=== PATIENT | male | born 1940 | race Caucasian/White ===

== ENCOUNTER 2017-07-02 02:55 | Emergency (ER) | payer MEDICARE ==
--- NOTE | 2017-07-02 03:53 | ED Physician Chart ---
ED Chief Complaint/HPI - Patient Information Date Seen:: 07/02/17 Time Seen:: 03:50 Chief Complaint:: Right shoulder pain History of Present Illness:: 76 yo male had right shoulder pain due to DJD for 2 years worsened for a few months. This morning, the patient could not tolerate the pain and called 911. Allergies:: Allergies Allergy/AdvReac Type Severity Reaction Status Date / Time No Known Allergies Allergy Verified 12/26/15 19:52 <Kristina Cavazos - Last Filed: 07/02/17 03:50> - Patient Information Allergies:: Allergies Allergy/AdvReac Type Severity Reaction Status Date / Time No Known Allergies Allergy Verified 12/26/15 19:52 Vitals:: Vital Signs - 8 hr 07/02/17 03:30 Temp 97.8 F HR 65 RR 19 BP 178/91 O2 Sat % 96 <Frank Figueroa - Last Filed: 07/02/17 07:31> Family Medical History - Family Member Father History Unknown: Yes Ethnicity: Non- Living Status: Hx Family Cancer: Yes Hx Family Coronary Artery Disease: Yes Hx Family Congestive Heart Failure: Yes Hx Family Hypertension: Yes Hx Family Stroke: No Hx Family Diabetes: No Hx Family Seizures: No Hx Family Dementia: No Hx Family AIDS: No Hx Family HIV: No Hx Family COPD: Yes Hx Family Hepatitis: No Hx Family Psychiatric Problems: No Hx Family Tuberculosis: No <Kristina Cavazos - Last Filed: 07/02/17 03:50> ED Labs/Radiology/EKG Results - Lab Results Results: Laboratory Tests 07/02/17 07/02/17 04:15 04:15 WBC 5.5 D RBC 4.39 Hgb 11.4 L Hct 35.1 L MCV 79.8 L MCH 25.9 L MCHC Differential 32.5 RDW 14.9 Plt Count 455 H D MPV 7.0 Neutrophils % 63.9 Lymphocytes % 21.9 Monocytes % 9.8 Eosinophils % 3.6 Basophils % 0.8 Sodium 138 Potassium 4.5 Chloride 108 H Carbon Dioxide 24.6 Anion Gap 9.9 BUN 18 Creatinine 0.8 Est GFR ( Amer) TNP Est GFR (Non-Af Amer) TNP BUN/Creatinine Ratio 22.5 Glucose 102 Calcium 9.1 Total Bilirubin 0.3 AST 10 L ALT 8 Alkaline Phosphatase 78 Total Protein 6.5 Albumin 3.9 L Globulin 2.6 Albumin/Globulin Ratio 1.5 <Frank Figueroa - Last Filed: 07/02/17 07:31> ED Septic Shock - . Is Septic Shock (SBP<90, OR Lactate>4 mmol\L) present?: No - <6hrs of presentation: Vital Signs: Vital Signs - 8 hr 07/02/17 03:30 Temp 97.8 F HR 65 RR 19 BP 178/91 O2 Sat % 96 <Frank Figueroa - Last Filed: 07/02/17 07:31> ED Reassessment (Disposition) - Reassessment Reassessment:: Right shoulder x-ray reviewed and no fracture noted. Reassessment Condition:: Improved - Diagnosis Diagnosis:: Right shoulder pain secondary to arthritis - Aftercare/Follow up Instructions Aftercare/Follow-Up Instructions:: Refer to Discharge Instructions Medication Prescribed:: [place] 10/29/2024 #10 to take 1 4 times a day as necessary for pain - Patient Disposition Discharge/Transfer:: Home Condition at Disposition:: Stable, Improved <Frank Figueroa - Last Filed: 07/02/17 07:31>
[2017-07-02 04:48] LABS: % BASOPHILS 0.8 % (0.0-2.0); % EOSINOPHILS 3.6 % (0.0-5.0); % LYMPHOCYTES 21.9 % (20.0-50.0); % MONOCYTES 9.8 % (2.0-10.0); % NEUTROPHILS 63.9 % (40.0-80.0); ALB/GLOB RATIO 1.5 (1.0-1.8); ALBUMIN 3.9 gm/dL (4.2-5.5); ALKALINE PHOSPHATASE 78 U/L (34-104); ANION GAP 9.9 (7.0-16.0); BILIRUBIN,TOTAL 0.3 mg/dL (0.3-1.0); BUN - UREA NITROGEN 18 mg/dL (7-25); CALCIUM SERUM 9.1 mg/dL (8.6-10.3); CARBON DIOXIDE 24.6 mEq/L (21.0-31.0); CHLORIDE 108 mEq/L (98-107); CREATININE - SERUM 0.8 mg/dL (0.7-1.3); EOSINOPHILE ABSOLUTE 0.2 Th/cmm (0.1-0.4); GLUCOSE 102 mg/dL (70-105); HEMATOCRIT 35.1 % (41.0-60); HEMOGLOBIN 11.4 gm/dL (12-16); LYMPHOCYTE ABSOLUTE 1.2 Th/cmm (1.5-3.0); MEAN CELL VOLUME 79.8 fl (80-99); MEAN CORPUSCULAR HEMOGLOBIN 25.9 pg (27.0-31.0); MEAN CORPUSCULAR HGB CONC 32.5 pg (28.0-36.0); MONOCYTE ABSOLUTE 0.5 Th/cmm (0.3-1.0); NEUTROPHILE ABSOLUTE 3.6 Th/cmm (1.8-8.0); POTASSIUM SERUM 4.5 mEq/L (3.5-5.1); RED BLOOD COUNT 4.39 Mil/cmm (3.80-5.80); RED CELL DISTRIBUTION WIDTH 14.9 % (11.5-20.0); SGOT 10 U/L (13-39); SGPT/ALT 8 U/L (7-52); SODIUM SERUM 138 mEq/L (136-145); TOTAL PROTEIN,SERUM 6.5 gm/dL (6.0-8.3)
[2017-07-02 04:49] LABS: PLATELET COUNT 455 Th/cmm (150-400); WHITE BLOOD COUNT 5.5 Th/cmm (4.8-10.8)
--- NOTE | 2017-07-02 08:41 | Diagnostic Imaging Report ---
Right shoulder 2 views Indication: pain Comparison: none Findings: Advanced glenohumeral joint degenerative changes are seen with advanced joint space loss. Moderate AC joint degenerative changes are noted. No evidence of an acute fracture or obvious dislocation. Postsurgical changes of the lower cervical spine are noted. There may be additional postsurgical changes of the mandibular region. Impression: No evidence of an acute fracture. Advanced degenerative changes most pronounced within the glenohumeral joint. Postsurgical changes. In the setting of trauma, if clinical symptoms persist and there is continued concern for an occult fracture, follow up exams in 5-7 days is suggested.
== END 2017-07-02 09:32 | disposition home or self-care (01) ==
LOC: ER 02:55
DX: M19.211 Secondary osteoarthritis, right shoulder (principal)
CPT/HCPCS: 99285; 96372; 73030; 36415; 85025; 80053; J1885

== ENCOUNTER 2018-05-31 16:37 | Emergency (ER) | payer MEDICARE ==
[2018-05-31 18:09] LABS: % BASOPHILS 1.9 % (0.0-2.0); % EOSINOPHILS 0.5 % (0.0-5.0); % LYMPHOCYTES 11.7 % (20.0-50.0); % MONOCYTES 7.9 % (2.0-10.0); BASOPHILE ABSOLUTE 0.1 Th/cumm (0-0.2); HEMATOCRIT 40.2 % (41.0-60); HEMOGLOBIN 13.7 gm/dL (12-16); LYMPHOCYTE ABSOLUTE 0.8 Th/cmm (1.5-3.0); MEAN CELL VOLUME 84.6 fl (80-99); MEAN CORPUSCULAR HEMOGLOBIN 28.8 pg (27.0-31.0); MEAN CORPUSCULAR HGB CONC 34.1 pg (28.0-36.0); MONOCYTE ABSOLUTE 0.6 Th/cmm (0.3-1.0); NEUTROPHILE ABSOLUTE 5.5 Th/cmm (1.8-8.0); PLATELET COUNT 365 Th/cmm (150-400); RED BLOOD COUNT 4.76 Mil/cmm (3.80-5.80); RED CELL DISTRIBUTION WIDTH 13.1 % (11.5-20.0)
--- NOTE | 2018-05-31 18:11 | ED Physician Chart ---
ED Chief Complaint/HPI - Patient Information Date Seen:: 05/31/18 Time Seen:: 17:07 Chief Complaint:: left head trauma History of Present Illness:: left head trauma s/p fall. No LOC. Bleeding left ear. Allergies:: Allergies Allergy/AdvReac Type Severity Reaction Status Date / Time No Known Allergies Allergy Verified 05/31/18 17:18 Vitals:: Vital Signs - 8 hr 05/31/18 17:07 Temp 95.6 F HR 86 RR 18 BP 166/93 O2 Sat % 97 Historian:: Patient Review:: Nurse's Note Reviewed ED Review of Systems - Review of Systems General/Constitutional: No fever, No chills, No weight loss, No weakness, No diaphoresis, No edema, No loss of appetite Skin: Other (bleeding left ear with hematoma. Not able to see exactly where it is bleeding from due to pooling.) Head: Headache Eyes: No loss of vision, No pain, No diplopia ENT: Earache, No nasal drainage, No sore throat, No tinnitus, Other (bleeding left ear) Neck: No neck pain, No swelling, No thyromegaly, No stiffness, No mass noted Cardio Vascular: No chest pain, No palpitations, No PND, No orthopnea, No edema Pulmonary: No SOB, No cough, No sputum, No wheezing GI: No nausea, No vomiting, No diarrhea, No pain, No melena, No hematochezia, No constipation, No hematemesis G/U: No dysuria, No frequency, No hematuria Musculoskeletal: No bone or joint pain, No back pain, No muscle pain Endocrine: No polyuria, No polydipsia Psychiatric: No prior psych history, No depression, No anxiety, No suicidal ideation Hematopoietic: No bruising, No lymphadenopathy Allergic/Immuno: No urticaria, No angioedema Neurological: No syncope, No focal symptoms, No weakness, No paresthesia, No headache, No seizure, No dizziness, No confusion, No vertigo ED Past Medical History - Past Medical History Obtainable: Yes Surgical History: other (bilateral shoulder surgery; left hand surgery; neck fusion) Family Medical History - Family Member Father History Unknown: Yes Ethnicity: Non- Living Status: Hx Family Cancer: Yes Hx Family Coronary Artery Disease: Yes Hx Family Congestive Heart Failure: Yes Hx Family Hypertension: Yes Hx Family Stroke: No Hx Family Diabetes: No Hx Family Seizures: No Hx Family Dementia: No Hx Family AIDS: No Hx Family HIV: No Hx Family COPD: Yes Hx Family Hepatitis: No Hx Family Psychiatric Problems: No Hx Family Tuberculosis: No ED Physical Exam - Physical Examination General/Constitutional: Awake, Well-developed, well-nourished, Alert, No distress, GCS 15, Non-toxic appearing, Ambulatory Other Head comments:: left bleeding ear. Eyes: Lids, conjuctiva normal, PERRL, EOMI Other ENMT comments:: left bleeding ear with hematoma. not able to see where actual bleeding point is present. Other Neck comments:: c/o neck pain. placed in c-spine precautions with c-collar. Respiratory: Nl effort/Exclusion, Clear to Auscultation, No Wheeze/Rhonchi/Rales Cardio Vascular: RRR, No murmur, gallop, rubs, NL S1 S2 GI: No tenderness/rebounding/guarding, No organomegaly, No hernia, Normal BS's, Nondistended, No mass/bruits, No McBurney tenderness Other Extremities comments:: BUE scars on shoulders. Amputation of left index finger. Neuro/Psych: Normal sensory exam, Judgement/insight normal, Mood normal, Normal gait, No focal deficits Other Neuro/Psych comments:: not able to elevate or abduct left shoulder. Misc: Normal back, No paraspinal tenderness ED Labs/Radiology/EKG Results - Lab Results Results: Laboratory Tests 05/31/18 05/31/18 17:37 17:55 WBC 7.0 RBC 4.76 Hgb 13.7 Hct 40.2 L MCV 84.6 MCH 28.8 MCHC Differential 34.1 RDW 13.1 Plt Count 365 MPV 7.0 Neutrophils % 78.0 Lymphocytes % 11.7 L Monocytes % 7.9 Eosinophils % 0.5 Basophils % 1.9 POC Glucose 112 H ED Assessment - Assessment General Assessment: EKG from 17:41:19 p.m. reveals normal sinus rhythm with a flipped t wave in V1 and LVH. CT scan of brain: atrophy and sinusitis CT scan of c-spine reveals severe DJD and fusion of C3 to C7. repeat CT read as negative. [facility] Medicare: T.C. at 7:31 p.m. Called and spoke with Dr. Martin, an ENT surgeon application integration architect for the [facility]. I personally spoke to him through his exchange and he said that he is not sure that he can do surgery on the left ear. sign out given to Dr. Martin at 8:20 p.m. ED Septic Shock - . Is Septic Shock (SBP<90, OR Lactate>4 mmol\L) present?: No - <6hrs of presentation: Vital Signs: Vital Signs - 8 hr 05/31/18 17:07 Temp 95.6 F HR 86 RR 18 BP 166/93 O2 Sat % 97 ED Reassessment (Disposition) - Reassessment Reassessment Condition:: Unchanged - Diagnosis Diagnosis:: Bleeding left ear Head trauma Neck pain with severe DJD - Patient Disposition Discharge/Transfer:: Acute Care (other hosp) Condition at Disposition:: Stable, Unchanged
[2018-05-31] MEDS ORDERED: ceFAZolin 1 GM in Sodium Chloride 0.9% 50 ML IV ONE (18:44)
[2018-05-31 19:19] LABS: ALB/GLOB RATIO 1.2 (1.0-1.8); ALBUMIN 3.8 gm/dL (4.2-5.5); ALKALINE PHOSPHATASE 79 U/L (34-104); ANION GAP 14.6 (7.0-16.0); BILIRUBIN,TOTAL 0.4 mg/dL (0.3-1.0); BUN - UREA NITROGEN 19 mg/dL (7-25); CALCIUM SERUM 9.4 mg/dL (8.6-10.3); CARBON DIOXIDE 21.3 mEq/L (21.0-31.0); CHLORIDE 106 mEq/L (98-107); GLUCOSE 109 mg/dL (70-105); MAGNESIUM 1.8 mg/dL (1.9-2.7); PHOSPHOROUS 2.9 mg/dL (2.5-5.0); POTASSIUM SERUM 3.9 mEq/L (3.5-5.1); SGOT 21 U/L (13-39); SGPT/ALT 16 U/L (7-52); SODIUM SERUM 138 mEq/L (136-145); TOTAL PROTEIN,SERUM 7.1 gm/dL (6.0-8.3)
[2018-05-31 19:21] LABS: URINE SOURCE CLEAN C
[2018-05-31 19:27] LABS: URINE BILIRUBIN NEGATIVE (NEGATIVE); URINE BLOOD NEGATIVE (NEGATIVE); URINE GLUCOSE (UA) NEGATIVE (NEGATIVE); URINE KETONE NEGATIVE (NEGATIVE); URINE LEUKOCYTE ESTERASE NEGATIVE (NEGATIVE); URINE NITRATE NEGATIVE (NEGATIVE); URINE PH 6.5 (4.6 - 8.0); URINE PROTEIN NEGATIVE (NEGATIVE); URINE UROBILINOGEN 0.2 E.U./dL (0.2 - 1.0)
[2018-05-31] MEDS ORDERED: Morphine Sulfate 2 mg/mL 1mL Syr IV STA (19:34)
[2018-05-31 19:39] LABS: AMPHETAMINE URINE POSITIVE (NEGATIVE); BARBITURATES URINE NEGATIVE (NEGATIVE); COCAINE METABOLITE QUAL URINE NEGATIVE (NEGATIVE); PHENCYCLIDINE (PCP) URINE NEGATIVE (NEGATIVE)
[2018-05-31 19:40] LABS: BENZODIAZEPINES QUAL URINE POSITIVE (NEGATIVE); CANNABINOID THC NEGATIVE (NEGATIVE); METHADONE URINE NEGATIVE (NEGATIVE); METHAMPHETAMINES QUAL URINE POSITIVE (NEGATIVE); OPIATES (MORPHINE) QUAL. URINE NEGATIVE (NEGATIVE); TRICYCLICS (TCA) QUAL. URINE NEGATIVE (NEGATIVE); URINE CLARITY CLEAR (CLEAR); URINE COLOR YELLOW; URINE MICROSCOPIC INDICATED? YES
[2018-05-31 19:42] LABS: URINE EPITHELIAL CELLS FEW /lpf (FEW); URINE RBC NONE SEEN /hpf (0-5); URINE WBC 0-2 /hpf (0-5)
[2018-05-31 19:43] LABS: URINE BACTERIA FEW /hpf (NONE SEEN)
[2018-05-31] MEDS ORDERED: Morphine Sulfate 2 mg/mL 1mL Syr ONE (19:52)
[2018-05-31] MEDS ORDERED: Lactated Ringer 1,000 ML IV ONE (20:05)
--- NOTE | 2018-06-01 08:48 | Diagnostic Imaging Report ---
Head CT without intravenous contrast Indication: Trauma Comparison: Head CT on 12/26/2015 Technique: Axial images were obtained from the vertex to the skull base without IV contrast. Coronal reconstructions were made. Total DLP: 1000, CTDI46 FINDINGS: Images of the brain obtained without contrast demonstrate no evidence of an acute hemorrhage. Mild atrophy is noted. The ventricles and basal cisterns are patent. No mass effect or midline shift. No evidence of a skull fracture. There is diffuse sinusitis with calcifications noted. Postsurgical changes of the maxillary regions are noted. IMPRESSION: No acute intracranial abnormality. Mild atrophy. Sinusitis with calcifications likely due to chronic sinusitis and chronic secretions. Postsurgical changes of the maxillary regions are noted.
--- NOTE | 2018-06-01 08:49 | Diagnostic Imaging Report ---
Head CT without intravenous contrast Indication: Trauma Comparison: Head CT earlier the same day Technique: Axial images were obtained from the vertex to the skull base without IV contrast. Coronal reconstructions were made. Total DLP: 966, CTDI42 FINDINGS: Images of the brain obtained without contrast demonstrate no acute hemorrhage. No mass lesions identified. The ventricles and basal cisterns are patent. The fallon-white matter differentiation is preserved. There is no mass effect or midline shift. Mild atrophy is noted. Sinusitis is noted. Postsurgical changes of the maxillary regions are noted. IMPRESSION: No acute intracranial abnormality. Mild atrophy. Sinusitis.
--- NOTE | 2018-06-01 09:23 | Diagnostic Imaging Report ---
CT cervical spine without IV contrast HISTORY: Trauma COMPARISON: Cervical spine CT 12/30/2014 Technique: Axial images were obtained from the skull base to the upper thoracic spine without IV contrast. Multiplanar reconstructions were made. Total DLP: 360, CTDI15.9 Findings: Images of the cervical spine obtained without contrast demonstrate evidence of previous anterior plate and screw fixation of C4-C7 with disc spacers at these levels. Extensive multilevel facet and discogenic degenerative changes are noted. Multilevel neural foraminal encroachment is also noted. No evidence of an acute fracture or subluxation. Degenerative changes of the atlantodental articulation is noted. There is mild scoliosis. No evidence of hardware loosening. Scarring of the lung apices is noted. IMPRESSION: No evidence of an acute fracture or subluxation Redemonstration of anterior fusion of C4-C7. No evidence of hardware loosening. Extensive multilevel degenerative changes. Mild scoliosis.
== END 2018-05-31 23:00 | disposition short-term general hospital (02) ==
LOC: ER 16:37
DX: S09.90XA Unspecified injury of head, initial encounter (principal); S68.111A Complete traumatic metacarpophalangeal amputation of left index finger, initial encounter; H92.22 Otorrhagia, left ear; M19.90 Unspecified osteoarthritis, unspecified site; M54.2 Cervicalgia; W18.30XA Fall on same level, unspecified, initial encounter; Y93.89 Activity, other specified; Y92.89 Other specified places as the place of occurrence of the external cause; Y99.8 Other external cause status
CPT/HCPCS: 99285; 96365; 96375; 93005; 70450 ×2; 72125; 84484; 36415; 36416; 82948; 80307; 85025; 81001; 83735; 84100; 80053; J2270; J1885; J0690

== ENCOUNTER 2018-06-18 10:52 | Emergency (ER) | payer MEDICARE ==
--- NOTE | 2018-06-18 20:20 | ED Physician Chart ---
ED Chief Complaint/HPI - Patient Information Date Seen:: 06/18/18 Time Seen:: 11:00 Chief Complaint:: Wound Check History of Present Illness:: pt is S/P left earlobe sutured laceration 2 weeks ago; pt denies any new trauma , LOC, ALOC, AMS, H/As, neck pain, C/P, SOB, Abd. Pain, A/N/V/D/C, fever, chills , or urinary s/s; pt's last tetanus shot: < 5 years; UTD Allergies:: Allergies Allergy/AdvReac Type Severity Reaction Status Date / Time No Known Allergies Allergy Verified 05/31/18 17:18 Historian:: Patient Review:: Nurse's Note Reviewed, Old Chart Reviewed ED Review of Systems - Review of Systems General/Constitutional: No fever, No chills, No weight loss, No weakness, No diaphoresis, No edema, No loss of appetite Skin: No skin lesions, No rash, No bruising Head: No headache, No light-headedness Eyes: No loss of vision, No pain, No diplopia ENT: No earache, No nasal drainage, No sore throat, No tinnitus Neck: No neck pain, No swelling, No thyromegaly, No stiffness, No mass noted Cardio Vascular: No chest pain, No palpitations, No PND, No orthopnea, No edema Pulmonary: No SOB, No cough, No sputum, No wheezing GI: No nausea, No vomiting, No diarrhea, No pain, No melena, No hematochezia, No constipation, No hematemesis G/U: No dysuria, No frequency, No hematuria, No nacturia Musculoskeletal: No bone or joint pain, No back pain, No muscle pain Endocrine: No polyuria, No polydipsia Psychiatric: No prior psych history, No depression, No anxiety, No suicidal ideation, No homicidal ideation, No auditory hallucination, No visual hallucination Hematopoietic: No bruising, No lymphadenopathy Allergic/Immuno: No urticaria, No angioedema Neurological: No syncope, No focal symptoms, No weakness, No paresthesia, No headache, No seizure, No dizziness, No confusion, No vertigo ED Past Medical History - Past Medical History Obtainable: Yes Past Medical History: HTN, Other (BPH) Family History: HTN Social History: Non Smoker, No Alcohol, No Drug Use, Surgical History: None Psychiatricy History: None Medication: Reviewed Family Medical History - Family Member Father History Unknown: Yes Ethnicity: Non- Living Status: Hx Family Cancer: Yes Hx Family Coronary Artery Disease: Yes Hx Family Congestive Heart Failure: Yes Hx Family Hypertension: Yes Hx Family Stroke: No Hx Family Diabetes: No Hx Family Seizures: No Hx Family Dementia: No Hx Family AIDS: No Hx Family HIV: No Hx Family COPD: Yes Hx Family Hepatitis: No Hx Family Psychiatric Problems: No Hx Family Tuberculosis: No ED Physical Exam - Physical Examination General/Constitutional: Awake, Well-developed, well-nourished, Alert, No distress, GCS 15, Non-toxic appearing, Ambulatory Head: Atraumatic Eyes: Lids, conjuctiva normal, PERRL, EOMI Skin: Nl inspection, No rash, No skin lesions, No ecchymosis, Well hydrated, No lymphadenopathy Other Skin comments:: Left Earlobe Sutured wound is healing well; no s/s of infection; good NV functions ENMT: External ears, nose nl, TM canals nl, Nasal exam nl, Lips, teeth, gums nl , Oropharynx nl, Tonsils nl Neck: Nontender, Full ROM w/o pain, No JVD, No nuchal rigidity, No bruit, No mass, No stridor Other Neck comments:: supple; no meningeal signs; no cervical tenderness; no bruits Respiratory: Nl effort/Exclusion, Clear to Auscultation, No Wheeze/Rhonchi/Rales Cardio Vascular: RRR, No murmur, gallop, rubs, NL S1 S2, Carotid/Femoral/Distal pulses equal bilaterally GI: No tenderness/rebounding/guarding, No organomegaly, No hernia, Normal BS's, Nondistended, No mass/bruits, No McBurney tenderness, Rectum exam nl Other GI comments:: no pulsatile masses : No CVA tenderness Extremities: No tenderness or effusion, Full ROM, normal strength in all extremities, No edema, Normal digits & nails Neuro/Psych: Alert/oriented, DTR's symmetric, Normal sensory exam, Normal motor strength, Judgement/insight normal, Mood normal, Normal gait, No focal deficits Other Neuro/Psych comments:: no focal signs Misc: Normal back, No paraspinal tenderness ED Assessment - Procedures Informed Consent: Procedure/risk/benefits explained by MD: Yes (Complete Removal of all sutures) ED Septic Shock - . Is Septic Shock (SBP<90, OR Lactate>4 mmol\L) present?: No ED Reassessment (Disposition) - Reassessment Reassessment:: pt is asymptomatic upon discharge Reassessment Condition:: Improved - Diagnosis Diagnosis:: Left Earlobe Wound/Laceration; Removal of all Sutures - Aftercare/Follow up Instructions Aftercare/Follow-Up Instructions:: Counseled pt regarding lab results/diagnosis & need follow up, Refer to Discharge Instructions, Counseled pt & family regarding lab results/diagnosis & need follow up - Patient Disposition Discharge/Transfer:: Home Condition at Disposition:: Stable, Improved (RTER prn if existing s/s reoccur and/or get worse and/or any other new s/s occur; ACIs given for all above Dx; Refer to ENT Specialist/Facial/Plastic Surgeon/Insurance Case Manager EBONI; F/U with PMD in one day or prn; RTER prn if concerned)
== END 2018-06-18 11:45 | disposition home or self-care (01) ==
LOC: ER 10:52
DX: S01.312D Laceration without foreign body of left ear, subsequent encounter (principal); I10 Essential (primary) hypertension; X58.XXXD Exposure to other specified factors, subsequent encounter
CPT/HCPCS: Z7502

== ENCOUNTER 2018-12-20 00:23 | Emergency (ER) | payer MEDICARE ==
--- NOTE | 2018-12-20 03:18 | ED Physician Chart ---
ED Chief Complaint/HPI - Patient Information Date Seen:: 12/20/18 Time Seen:: 01:11 Chief Complaint:: back abd pain History of Present Illness:: 78 yr old male with abd pain back pain hx of chronic pain shoulder back and htn Allergies:: Allergies Allergy/AdvReac Type Severity Reaction Status Date / Time No Known Allergies Allergy Verified 05/31/18 17:18 Vitals:: Vital Signs - 8 hr 12/20/18 00:51 Temp 97.9 F HR 79 RR 20 BP 147/80 O2 Sat % 97 ED Review of Systems - Review of Systems General/Constitutional: No fever Skin: No skin lesions Head: No headache Eyes: No loss of vision ENT: No earache Neck: No neck pain Cardio Vascular: Palpitations Pulmonary: No SOB GI: Nausea, No vomiting, No diarrhea G/U: No dysuria Musculoskeletal: No bone or joint pain Endocrine: No polyuria Hematopoietic: No bruising Allergic/Immuno: No urticaria Neurological: No syncope ED Past Medical History - Past Medical History Past Medical History: HTN, PUD/GERD Family Medical History - Family Member Father History Unknown: Yes Ethnicity: Non- Living Status: Hx Family Cancer: Yes Hx Family Coronary Artery Disease: Yes Hx Family Congestive Heart Failure: Yes Hx Family Hypertension: Yes Hx Family Stroke: No Hx Family Diabetes: No Hx Family Seizures: No Hx Family Dementia: No Hx Family AIDS: No Hx Family HIV: No Hx Family COPD: Yes Hx Family Hepatitis: No Hx Family Psychiatric Problems: No Hx Family Tuberculosis: No ED Physical Exam - Physical Examination General/Constitutional: Awake, Well-developed, well-nourished, Alert, No distress, GCS 15, Non-toxic appearing, Ambulatory Head: Atraumatic Eyes: Lids, conjuctiva normal, PERRL, EOMI Skin: Nl inspection, No rash, No skin lesions, No ecchymosis, Well hydrated, No lymphadenopathy ENMT: External ears, nose nl, Nasal exam nl, Lips, teeth, gums nl Neck: Nontender, Full ROM w/o pain, No JVD, No nuchal rigidity, No bruit, No mass, No stridor Respiratory: Nl effort/Exclusion, Clear to Auscultation, No Wheeze/Rhonchi/Rales Cardio Vascular: RRR, No murmur, gallop, rubs, NL S1 S2 Other GI comments:: diffuse abd pain no masses hernias : No CVA tenderness Extremities: No tenderness or effusion, Full ROM, normal strength in all extremities, No edema, Normal digits & nails Neuro/Psych: Alert/oriented, DTR's symmetric, Normal sensory exam, Normal motor strength, Judgement/insight normal, Mood normal, Normal gait, No focal deficits Misc: Normal back, No paraspinal tenderness ED Assessment - Assessment General Assessment: abd pain refused w/u ED Septic Shock - . Is Septic Shock (SBP<90, OR Lactate>4 mmol\L) present?: No - <6hrs of presentation: Vital Signs: Vital Signs - 8 hr // 00:51 Temp 97.9 F HR 79 RR 20 BP 147/80 O2 Sat % 97 ED Reassessment (Disposition) - Reassessment Reassessment:: abd pain r/o gerd - Diagnosis Diagnosis:: as above - Patient Disposition Discharge/Transfer:: Against Medical Advice Condition at Disposition:: Stable
== END 2018-12-20 01:05 | disposition left against medical advice (07) ==
LOC: ER 00:23
DX: R10.84 Generalized abdominal pain (principal); I10 Essential (primary) hypertension; K21.9 Gastro-esophageal reflux disease without esophagitis
CPT/HCPCS: Z7502